=== PATIENT | female | born 1960 | race Caucasian/White ===

== ENCOUNTER 2020-12-23 06:53 | Day surgery (SDC) | payer MEDICARE, MEDICAID, SELFPAY ==
[2020-12-20 13:45] VITALS: BMI 26.0
[2020-12-23 07:32] VITALS: BP 145/55; PULSE 66; RESP 16; TEMP 36.2; O2SAT 98; BMI 25.7
[2020-12-23] MEDS: Lactated Ringers 1,000 ML 50 ML IV (07:36)
--- NOTE | 2020-12-23 07:39 | P.CONAN_ITS ---
[facility] Past Medical History Medical History Elevated cholesterol Fibromyalgia GERD (gastroesophageal reflux disease) History of fractured vertebra History of palpitations Hx of cervical cancer Hx of scarlet fever Migraine headache Schatzki's ring Scoliosis Surgical History Surgical History History of back surgery History of carpal tunnel surgery of right wrist History of esophagogastroduodenoscopy (EGD) History of tubal ligation Hx of colonoscopy Social History Social History Advance Directives: No Advance Directives Information Provided: No Advance Directives on File: No Meds Allergies Allergy/AdvReac Type Severity Reaction Status Date / Time acetic acid [VINEGAR] Allergy Severe ANGIOEDEMA Verified 12/23/20 07:36 codeine [CODEINE] AdvReac Intermediate N/V Verified 12/23/20 07:36 iodine [IODINE] AdvReac Intermediate NAUSEA Verified 12/23/20 07:36 Active Medications: Current Medications Generic Name Dose Route Start Last Admin Trade Name Freq PRN Reason Stop Dose Admin Lactated Ringer's 1,000 mls @ 50 mls/hr 12/22/20 08:15 12/23/20 07:36 Lr IV 50 mls/hr .Q20H FARZANA Administration Home Medications Medication Instructions Recorded Confirmed Last Taken Type acetaminophen 1 tab PO Q6H PRN 12/20/20 12/20/20 Unknown History atorvastatin 1 tab PO DAILY 12/20/20 12/20/20 Unknown History azelastine 2 spray INTRANASAL BID 12/20/20 12/20/20 Unknown History kczumfpjtw-qqcikylxlmugy-jrbu 1 tab PO Q6H PRN 12/20/20 12/20/20 Unknown History carisoprodol 1 tab PO TID PRN 12/20/20 12/20/20 Unknown History cetirizine 1 tab PO DAILY 12/20/20 12/20/20 Unknown History escitalopram oxalate 1 tab PO DAILY 12/20/20 12/20/20 Unknown History famotidine 1 tab PO BID 12/20/20 12/20/20 Unknown History fluticasone propionate 1 spray INTRANASAL DAILY 12/20/20 12/20/20 Unknown History metformin tab PO 12/20/20 Unknown History mometasone 1 appl TOPICAL BID PRN 12/20/20 12/20/20 Unknown History oxybutynin chloride 1 tab PO DAILY 12/20/20 12/20/20 Unknown History Exam Exam Date and Time: December 23, 2020 0739 Height,Weight and Vital Signs: Height 5 ft 3 in Weight 65.771 kg Last Vital Signs Temp 97.1 F 12/23/20 07:32 Pulse 66 12/23/20 07:32 Resp 16 12/23/20 07:32 BP 145/55 H 12/23/20 07:32 Pulse Ox 98 12/23/20 07:32 Airway Mallampati Class: II (Edentulous upper, 2 teeth lower) TM Dist: >3cm Neck ROM: Full Loose/Missing/Broken Teeth: Yes, Upper and Lower Heart: RRR Lungs: CTA Assessment and Plan Assessment Anesthesia Assessment: Anesthesia Plan Discussed and Chart Reviewed Final Anesthetic Review NPO: Yes ASA Class: III Final Preanesthetic Review: Meds/Allgs Chart Reviewed, Consent Obtained/Reviewed and Anes Risks/Benef Reviewed Patient Risk: Intermediate Procedure Risk: Low Anesthetic Plan Anesthetic Plan: MAC: Disposition: Standard PACU
[2020-12-23 07:40] LABS: Glucose, Whole Blood 323 mg/dL (60-115)
--- NOTE | 2020-12-23 08:16 | MHC.SHP ---
Pre-Procedural Eval Section A The patient is an INPATIENT: No Changes since office visit: No Cold of Flu in the past 2 weeks, No New Medical Problems, No Changes in Medication and No Patient answered all questions The History & Physical has been completed within 30 days and I have reviewed it.: Yes Section B Chief Complaint: screenng Allergies: Allergies Allergy/AdvReac Type Severity Reaction Status Date / Time acetic acid [VINEGAR] Allergy Severe ANGIOEDEMA Verified 12/23/20 07:36 codeine [CODEINE] AdvReac Intermediate N/V Verified 12/23/20 07:36 iodine [IODINE] AdvReac Intermediate NAUSEA Verified 12/23/20 07:36 Plan I have reviewed the history and physical and performed a pertinent physical examination on my patient. No changes have occurred unless specified.
--- NOTE | 2020-12-23 08:48 | PM.OP ---
Brief Operative Note Date of Service: 12/23/20 Pre-op diagnosis: screening Post-op diagnosis: same Surgeon: Michael Yee Anesthesia: GETA and MAC Estimated blood loss (mL): 0 Pathology: none sent Condition: stable Disposition: PACU
[2020-12-23 08:52] VITALS: BP 121/63; PULSE 64; RESP 16; TEMP 36.2; O2SAT 100
[2020-12-23 09:07] VITALS: BP 126/60; PULSE 58; RESP 18; O2SAT 98
--- NOTE | 2020-12-23 13:35 | OP_ITS ---
SURGEON: Michael Yee MD INDICATIONS: Colon cancer screening. PREOPERATIVE DIAGNOSIS: POSTOPERATIVE DIAGNOSIS: PROCEDURE PERFORMED: Colonoscopy to the cecum. ESTIMATED BLOOD LOSS: COMPLICATIONS: ANESTHESIA: ASSISTANTS: SPECIMENS: MEDICATIONS: Monitored anesthesia care. DESCRIPTION OF PROCEDURE: History and physical performed. The risks and benefits of the procedure were explained to the patient. Informed consent was obtained. The patient was placed in left lateral decubitus position. A digital rectal exam was performed and was found to be normal. The Olympus pediatric video colonoscope was introduced into the rectum and advanced to the cecum without difficulty. The cecum was identified by transillumination, palpation, and identification of ileocecal valve. Examination was performed and the scope was removed. She tolerated the procedure well and was taken to recovery area in stable condition. FINDINGS: The terminal ileum was not examined. The visualized colonic mucosa was normal. There was some retained stool, which limited the sensitivity examination for detection of small polyps to a mild degree. This was washed and suctioned. No polyps were identified. No diverticulosis was noted. Retroflexed examination showed small internal hemorrhoids. IMPRESSION: Negative screening colonoscopy. RECOMMENDATIONS: 1. Follow up as needed. 2. Repeat colonoscopy is recommended in 10 years for average risk individuals. MD LELAND Dominguez/KATY / [id number]
[2021-01-03 09:45] LABS: Glucose, Whole Blood 291 mg/dL (60-115)
== END 2020-12-23 09:50 | disposition home or self-care (01) ==
PROVIDERS: PCP Internal Medicine; Visit Provider Internal Medicine Gastroenterology
PROC: 0DJD8ZZ Inspection of Lower Intestinal Tract, Via Natural or Artificial Opening Endoscopic (ICD-10-PCS; CPT 45378; principal; 2020-12-23 08:00)
DX: Z12.11 Encounter for screening for malignant neoplasm of colon (principal); K64.8 Other hemorrhoids; K21.9 Gastro-esophageal reflux disease without esophagitis; E11.9 Type 2 diabetes mellitus without complications; J30.2 Other seasonal allergic rhinitis; Z79.51 Long term (current) use of inhaled steroids; Z79.84 Long term (current) use of oral hypoglycemic drugs; Z79.899 Other long term (current) drug therapy; Z88.8 Allergy status to other drugs, medicaments and biological substances; Z85.41 Personal history of malignant neoplasm of cervix uteri; Z87.891 Personal history of nicotine dependence
CPT/HCPCS: G0121; 82947

== ENCOUNTER 2021-01-09 08:21 | Outpatient (REF) | payer MEDICARE, MEDICAID, SELFPAY ==
[2021-01-09 09:10] LABS: MANUAL DIFF FLAG NO
[2021-01-09 09:15] LABS: Basophils Absolute Auto 0.1 X10*3/uL (0.0-0.2); Eosinophils Absolute Auto 0.4 X10*3/uL (0.0-0.4); Eosinophils Percent Auto 4.7 % (0-4); Hemoglobin 12.8 g/dl (12.0-16.0); Imm Gran Abs Auto 0.03 X10*3/uL (0.00-0.03); Imm Gran Pct Auto 0.3 % (0.0-0.4); Lymphocytes Absolute Auto 2.5 X10*3/uL (1.2-4.9); Lymphocytes Percent Auto 28.1 % (20-40); Mean Corpuscular HGB Conc 34.6 g/dl (31.0-35.0); Mean Corpuscular Hemoglobin 33.4 pg (27.0-33.0); Mean Corpuscular Volume 96.6 fL (80-98); Mean Platelet Volume 9.8 fL (9.4-12.3); Monocytes Absolute Auto 0.7 X10*3/uL (0.1-1.2); Monocytes Percent Auto 7.3 % (2-11); Neutrophils Absolute Auto 5.2 X10*3/uL (2.0-8.3); Neutrophils Percent Auto 58.6 % (45-73); Platelet Count 376 X10*3/uL (160-400); Red Blood Count 3.83 X10*6/uL (4.20-5.50); Red Cell Distribution Width 12.5 % (11.0-16.0); White Blood Count 8.9 X10*3/uL (4.8-10.8)
[2021-01-09 09:38] LABS: Alanine Aminotransferase 121 U/L (0-31); Albumin Level 4.6 g/dL (3.5-5.0); Alkaline Phosphatase 139 U/L (39-117); Aspartate Amino Transferase 80 U/L (5-31); Bilirubin Direct 0.3 mg/dL (0.0-0.5); Bilirubin Total 0.8 mg/dL (0.0-1.0); Blood Urea Nitrogen 5 mg/dL (9-16); Estimated Glomerular Filt Rate > 60; Lipase 32 U/L (8-78); Total Protein 7.3 g/dL (6.5-8.0)
== END 2021-01-09 08:22 | disposition home or self-care (01) ==
LOC: HO.LAB 08:21
PROVIDERS: PCP Internal Medicine; Visit Provider Internal Medicine Gastroenterology
DX: R10.11 Right upper quadrant pain (principal)
CPT/HCPCS: 36415; 80076; 82565; 83690; 84520; 85025

== ENCOUNTER 2021-01-23 08:46 | Outpatient (REF) | payer MEDICARE, MEDICAID, SELFPAY ==
--- NOTE | ~2021-01-23 | US_ITS ---
EXAMINATION: US ABDOMEN COMPLETE CLINICAL INFORMATION: Right upper quadrant pain. COMPARISON: None TECHNIQUE: Real-time imaging of the abdominal viscera. FINDINGS: PANCREAS: The head and body the pancreas are normal. The tail is not well visualized due to bowel gas. ABDOMINAL AORTA: Not well visualized. INFERIOR VENA CAVA: Visualized portions are normal. LIVER: Liver echotexture is increased. Is a hypoechoic area adjacent to the gallbladder, characteristic location of focal fatty sparing. The liver is normal in size. The liver contour is normal. No focal hepatic lesion. There is no intrahepatic biliary duct dilatation seen. GALLBLADDER: Normal. The gallbladder is physiologically distended without evidence of stones, sludge, polyps, wall thickening or pericholecystic fluid. COMMON BILE DUCT: Normal in caliber measuring 0.43 cm in diameter. RIGHT KIDNEY: There is a 5 mm echogenic density in the midpole with twinkle artifact questionable for small cortical calcification versus stone. No hydronephrosis or focal parenchymal lesions. The kidney measures 10.4 cm in maximum dimension. LEFT KIDNEY: There is a 5 mm echogenic density in the upper pole of the left kidney with twinkle artifact questionable for small stone. No hydronephrosis or focal parenchymal lesions. The kidney measures 10.3 cm in maximum dimension. SPLEEN: Normal. The spleen measures 9.3 cm in maximum dimension. FREE FLUID: None. US/US abdomen complete IMPRESSION: Echogenic liver suggestive of fatty infiltration. Question small bilateral renal stones. Limited visualization of the tail the pancreas and aorta.
== END 2021-01-23 08:47 | disposition home or self-care (01) ==
LOC: HO.US 08:46
PROVIDERS: Visit Provider Internal Medicine Gastroenterology
DX: R10.11 Right upper quadrant pain (principal)
CPT/HCPCS: 76700

== ENCOUNTER 2022-03-08 09:21 | Emergency (ER) | payer OTHER, MEDICAID, SELFPAY ==
--- NOTE | ~2022-03-08 | XR_ITS ---
EXAMINATION: THORACIC SPINE, LUMBAR SPINE CLINICAL INFORMATION: Back pain COMPARISON: None TECHNIQUE: 3 views thoracic spine, 3 views lumbar spine FINDINGS: Thoracic spine: There is minimal biconvex scoliosis present. Vertebral body heights and disc spaces are well maintained. Paraspinal soft tissues appear unremarkable. No bony destructive lesions are seen. Lumbar spine: Disc spaces are well preserved with the exception of some mild narrowing at L1-L2 with there is a Schmorl's node on the superior endplate of the L2 vertebral body. No bony destructive lesions are seen. No spondylolisthesis is present. XR/XR lumbar spine 2-3V IMPRESSION: Some mild degenerative changes noted lumbar spine with some narrowing at the L1-L2 disc space with Schmorl's node superior endplate of L2 as described above.
--- NOTE | ~2022-03-08 | XR_ITS ---
EXAMINATION: THORACIC SPINE, LUMBAR SPINE CLINICAL INFORMATION: Back pain COMPARISON: None TECHNIQUE: 3 views thoracic spine, 3 views lumbar spine FINDINGS: Thoracic spine: There is minimal biconvex scoliosis present. Vertebral body heights and disc spaces are well maintained. Paraspinal soft tissues appear unremarkable. No bony destructive lesions are seen. Lumbar spine: Disc spaces are well preserved with the exception of some mild narrowing at L1-L2 with there is a Schmorl's node on the superior endplate of the L2 vertebral body. No bony destructive lesions are seen. No spondylolisthesis is present. XR/XR thoracic spine 2V IMPRESSION: Some mild degenerative changes noted lumbar spine with some narrowing at the L1-L2 disc space with Schmorl's node superior endplate of L2 as described above.
[2022-03-08 09:29] VITALS: BP 126/63; PULSE 75; RESP 16; TEMP 36.1; O2SAT 97; BMI 23.8
--- NOTE | 2022-03-08 09:36 | ED_ITS ---
HPI - Back Pain/Injury General Chief Complaint: Back Pain/Injury Stated Complaint: back thrown out Time Seen by Provider: 03/08/22 09:36 Source: patient, RN notes reviewed and old records reviewed Mode of arrival: ambulatory Limitations: no limitations History of Present Illness HPI Narrative: This is a 62-year-old female with a past medical history of diabetes type 2, migraines, insomnia, and chronic back pain, who presents to the emergency department with complaints of acute on chronic back pain for 1 week. Patient denies any recent trauma, injury, or falls. She had a back fracture 11 years ago however, she is unsure what she broke or on what level. She reports that she initially felt a headache while she was walking 1 week ago which then resolved, and since then she has had diffuse back pain which she reports radiates down her anterior posterior legs. She reports that she has taken Soma 350 mg 3 times a day which has not helped her symptoms. She has been seen by her chiropractor who is requesting x-rays of her back today. She denies any urinary or bowel incontinence. She denies any saddle paresthesias. She states that she has not had a bowel movement in 4 days, she reports that she has a history of constipation and takes OTC bowel regimen for this. She denies any fevers, chills, dysuria, urinary frequency, urinary urgency, nausea, vomiting, diarrhea, chest pain, palpitations. She denies any other complaints or concerns at this time. MD elicited complaint: back pain Pertinent past history: prior back pain Onset (ago): week(s) (1) Timing: constant Severity: mild Pain scale (0-10): 3 Similar Symptoms Previously: Yes Quality: dull and aching Location: lumbar spine and thoracic spine Exacerbating factors: movement Relieving factors: none Associated symptoms: denies other symptoms Treatments prior to arrival: other medications (Soma) Work related injury: No Related Data Home Medications Medication Instructions Recorded Confirmed acetaminophen 500 mg tablet 1 tab PO Q6H PRN pain 12/20/20 12/20/20 atorvastatin 20 mg tablet 1 tab PO DAILY 12/20/20 12/20/20 azelastine 137 mcg (0.1 %) nasal 2 spray intranasal BID 12/20/20 12/20/20 spray aerosol dwvxesfebd-pzqhojnbnkegy-ggxxfdzw 1 tab PO Q6H PRN pain 12/20/20 12/20/20 50 mg-325 mg-40 mg tablet carisoprodol 350 mg tablet 1 tab PO TID PRN Muscle Pain 12/20/20 12/20/20 cetirizine 10 mg tablet 1 tab PO DAILY 12/20/20 12/20/20 escitalopram oxalate 20 mg tablet 1 tab PO DAILY 12/20/20 12/20/20 famotidine 40 mg tablet 1 tab PO BID 12/20/20 12/20/20 fluticasone propionate 50 1 spray intranasal DAILY 12/20/20 12/20/20 mcg/actuation nasal spray,suspension metformin 500 mg tablet tab PO 12/20/20 mometasone 0.1 % topical cream 1 appl topical BID PRN Itching 12/20/20 12/20/20 oxybutynin chloride 5 mg 1 tab PO DAILY 12/20/20 12/20/20 tablet,extended release 24 hr Allergies Allergy/AdvReac Type Severity Reaction Status Date / Time acetic acid [VINEGAR] Allergy Severe ANGIOEDEMA Verified 12/23/20 07:36 codeine [CODEINE] AdvReac Intermediate N/V Verified 12/23/20 07:36 iodine [IODINE] AdvReac Intermediate NAUSEA Verified 12/23/20 07:36 Review of Systems Constitutional: Constitutional: Reports no additional constitutional complaints, Denies chills, Denies fever(s) and Denies night sweats Eyes: Eyes: Reports no additional eye complaints, Denies blurry vision, Denies change in vision, Denies diplopia, Denies eye discharge, Denies loss of vision and Denies eye pain ENT: Denies dizziness Cardiovascular: Cardiovascular: Reports no additional cardiovascular complaints, Denies chest pain, Denies lightheadedness, Denies Loss of Consciousness and Denies dyspnea Respiratory: Respiratory: Reports no additional respiratory complaints and Denies dyspnea Gastrointestinal: Gastrointestinal: Reports no additional gastrointestinal complaints, Denies abdominal pain, Denies melena, Denies hematochezia, Denies change in bowel habits and Denies change in stool character Genitourinary: Genitourinary: Denies hematuria, Denies urinary frequency, Denies dysuria, Denies urinary incontinence, Denies urinary hesitancy and Denies urinary urgency Musculoskeletal: Musculoskeletal: Reports back pain, Denies numbness and Denies tingling Neurologic: Denies dizziness, Denies loss of vision, Denies numbness and Denies tingling Psychiatric: Psychiatric: Reports no additional psychiatric complaints Endocrine: Endocrine: Reports no additional endocrine complaints Hematologic/Lymphatic: Hematologic/Lymphatic: Reports no additional hematologic/lymphatic complaints Allergic/Immunologic: Allergic/Immunologic: Reports no additional allergic/immunologic complaints [facility] Past Medical History Attestation statement: The following information was validated with the patient. Source: old records reviewed Medical History Elevated cholesterol Fibromyalgia GERD (gastroesophageal reflux disease) History of fractured vertebra History of palpitations Hx of cervical cancer Hx of scarlet fever Migraine headache Schatzki's ring Scoliosis Surgical History History of back surgery History of carpal tunnel surgery of right wrist History of esophagogastroduodenoscopy (EGD) History of tubal ligation Hx of colonoscopy Social History Social History Advance Directives: Yes Advance Directives Information Provided: Yes Advance Directives on File: No Physical Exam Vital Signs: Vital Signs: Last Vital Signs Temp 97 F 03/08/22 09:29 Pulse 75 03/08/22 09:29 Resp 16 03/08/22 09:29 BP 126/63 03/08/22 09:29 Pulse Ox 97 03/08/22 09:29 O2 Del Method 03/08/22 09:29 BMI result Body Mass Index 23.8 Const: General: cooperative, no acute distress, alert and awake Nutritional Appearance: well nourished Orientation/consciousness: patient oriented x3 Limitations: no limitations HEENT: Head: Yes normal to inspection and Yes atraumatic Ears: hearing grossly normal bilaterally and external ears normal General nose exam: Normal external nose present, no nasal discharge noted and no epistaxis Face and sinus: Yes normal facial exam, No abrasion and No laceration Mouth: Normal oral and palatal mucosa present, no drooling and no muffled voice Eyes: General: appearance normal, both eyes and all related structures Periorbital: periorbital findings normal Eyelids: Yes eyelids normal Conjunctivae: conjunctivae normal Pupils: Equal, round and reactive pupils present EOM: EOMs intact bilaterally Neck: Neck: Yes normal visual inspection, Yes full ROM, Yes no lymphadenopathy and Yes supple Chest: Chest palpation & inspection: normal inspection of the chest Resp: Effort & Inspection: normal respiratory effort and able to speak in complete sentences Auscultation: clear to auscultation bilaterally Cardio: Rate: regular rate Rhythm: regular rhythm Heart sounds: S1 normal heart sound present and S2 normal heart sound present GI: Other: Abdomen is soft, nontender, no rebound or guarding. Active bowel sounds noted. Inspection: Yes normal to inspection : General: Yes no CVA tenderness Back/Spine/Pelvis: Other: Tenderness to palpation overlying the thoracic and lumbar paraspinous muscles bilaterally. mild tenderness overlying the left sciatic notch. No midline spine tenderness. Negative straight leg raise test bilaterally. DTR are 2+ bilaterally Back: no CVA tenderness Cervical Spine: normal cervical lordosis and cervical ROM normal Thoracic/Lumbar Spine: thoracic and lumbar spine normal to inspection and thoraco-lumbar ROM normal Pelvis: no pain with anterior-posterior compression Skin: General skin exam: no rashes or lesions noted Lesions: no lesions Rashes: no rashes Trauma: no lacerations or abrasions Neuro: General: patient oriented x3 and moves all extremities Cranial nerves: Yes Equal, round and reactive pupils present Cognition (Neuro): normal cognition Motor exam (neuro): 5/5 motor strength present throughout Sensory Exam: Normal double simultaneous stimulation for sensation Coordination: jqaktr-iq-fmus test normal Extrem: General: Yes normal to inspection, Yes full ROM and Yes capillary refill normal Psych: Appearance: grossly normal Mental Status: mental status grossly normal Affect: normal affect Attitude: cooperative Thought process: Normal thought process present Thought content: Normal thought content present Insight: Good insight present (Psych) Course Course Course Narrative: 10:00 This is a 62-year-old female with a past medical history of diabetes type 2, migraines, insomnia, and chronic back pain, who presents to the emergency department with complaints of acute on chronic back pain for 1 week. No saddle paraesthesia, urinary or bowel incontinence. Plan: Patient was seen and evaluated. Lumbar and thoracic spine x-rays ordered. Patient medicated with Toradol 15mg IM. MDM - Back Pain/Injury MDM Narrative Medical decision making narrative: Patient is a 62 year old female presenting to the emergency department today with acute on chronic back pain. Patient's physical exam was unremarkable. Patient's lumbar and thoracic x-rays showed some mild degenerative changes and some narrowing at the L1-L2 disc space with Schmorl's node present at the superior endplate of L2. I explained my physical exam findings as well as all test results to the patient. I answered all questions asked by the patient. Patient received IM Toradol which she stated helped her symptoms significantly. I stressed the importance of the patient taking her medication as prescribed. I stressed the importance of the patient following up with [his/her/their] primary care provider. I stressed the importance of the patient returning to the emergency department immediately if her symptoms were to worsen or if she were to develop any dizziness, shortness of breath, difficulty breathing, chest pain, blurry vision, loss of vision, nausea, vomiting, abdominal pain, fever, chills, back pain, or any other complaints. Patient verbalized agreement and understanding with this treatment plan and discharge. Differential Diagnosis Differential diagnosis: Likely strain of lumbar region Medical Records Attestation: I reviewed the patient's medical records. Imaging Data Lumbar and Thoracic X-ray: Attestation: I personally reviewed and interpreted this imaging study as follows: My impression: No acute process. Radiologist's impression: EXAMINATION: THORACIC SPINE, LUMBAR SPINE CLINICAL INFORMATION: Back pain? COMPARISON: None? TECHNIQUE: 3 views thoracic spine, 3 views lumbar spine? FINDINGS: Thoracic spine: There is minimal biconvex scoliosis present. Vertebral body heights and disc spaces are well maintained. Paraspinal soft tissues appear unremarkable. No bony destructive lesions are seen. Lumbar spine: Disc spaces are well preserved with the exception of some mild narrowing at L1-L2 with there is a Schmorl's node on the superior endplate of the L2 vertebral body. No bony destructive lesions are seen. No spondylolisthesis is present.? XR/XR thoracic spine 2V IMPRESSION: Some mild degenerative changes noted lumbar spine with some narrowing at the L1-L2 disc space with Schmorl's node superior endplate of L2 as described above.? Dictated By: Adrian Najera MD Signed By: <Electronically signed by Adrian Najera MD in OV> Discharge Plan Discharge Clinical Impression: Strain of lumbar region Patient Disposition: Home, Self-Care Instructions: Low Back Strain (ED), Lower Back Exercises (ED) Additional Instructions: Findings we talked about at your visit: mild narrowing at L1-L2 with there is a Schmorl's node on the superior endplate of the L2 vertebral body, suspicious for a herniated disc. Follow up with your primary care provider, an business continuity specialist, and a pain specialist. Return to the emergency department immediately if your symptoms worsen or if you develop any dizziness, shortness of breath, difficulty breathing, chest pain, blurry vision, loss of vision, nausea, vomiting, abdominal pain, fever, chills, back pain, or any other complaints. Prescriptions: No Action carisoprodol 350 mg tablet 1 tab PO TID PRN (Reason: Muscle Pain) metformin 500 mg tablet PO atorvastatin 20 mg tablet 1 tab PO DAILY cetirizine 10 mg tablet 1 tab PO DAILY famotidine 40 mg tablet 1 tab PO BID acetaminophen 500 mg tablet 1 tab PO Q6H PRN (Reason: pain) kzhvgaaxis-himplakzxpfpo-bqdp 50-325-40 mg tablet 1 tab PO Q6H PRN (Reason: pain) oxybutynin chloride 5 mg tablet extended release 24hr 1 tab PO DAILY azelastine 137 mcg (0.1 %) aerosol,spray 2 spray intranasal BID fluticasone propionate 50 mcg/actuation spray,suspension 1 spray intranasal DAILY mometasone 0.1 % cream 1 appl topical BID PRN (Reason: Itching) escitalopram oxalate 20 mg tablet 1 tab PO DAILY Referrals: [facility] Orthopedic Surgeons [Provider Group] (Call to establish and follow up with an orthopedic provider. ) [facility] Pain Management [Provider Group] (Call to establish and follow up with a manufacturing engineer paint. ) Nakul Omer MD [Primary Care Provider] - (Follow up with your primary care provider. ) Interventions: ED Discharge Assessment Last Done: 03/08/22 11:56 Discharge Date/Time: 03/08/22 11:57 Print Language: Uzbek
--- NOTE | 2022-03-08 10:37 | PC.NURSE ---
pt to imaging at this time
[2022-03-08] MEDS: Ketorolac Tromethamine 15 MG/ML VIAL IM (10:44)
--- NOTE | 2022-03-08 11:45 | PC.NURSE ---
Pt stated that pain medication did not work. PA student and PA aware. Pt provided with box of tissue per request. Pt able to ambulate to RN station with steady gait using cane
== END 2022-03-08 11:57 | disposition home or self-care (01) ==
PROVIDERS: Emergency Provider Emergency Medicine; PCP Internal Medicine
DX: M54.50 Low back pain, unspecified (principal); M54.6 Pain in thoracic spine; E11.9 Type 2 diabetes mellitus without complications; Z79.899 Other long term (current) drug therapy
CPT/HCPCS: 72070; 72100; 96372; 99283; J1885

== ENCOUNTER 2022-07-24 10:48 | Day surgery (SDC) | payer OTHER, MEDICAID, SELFPAY ==
--- NOTE | 2022-07-23 13:48 | HO.ANESPROP2 ---
Documented by User: Julieth Andrews NP 07/23/22 13:50 HPI - Anesthesia Eval Consult details Narrative: 62yo M for Upper Endoscopy with Balloon Dilitation PMFSH Past Medical History Medical History Diabetes Elevated cholesterol Fibromyalgia GERD (gastroesophageal reflux disease) History of fractured vertebra History of palpitations Hx of cervical cancer Hx of scarlet fever Migraine headache Schatzki's ring Scoliosis Surgical History Surgical History History of back surgery History of carpal tunnel surgery of right wrist History of esophagogastroduodenoscopy (EGD) History of tubal ligation Hx of colonoscopy Hx of elbow surgery Social History Social History Patient Tobacco Use Status: Current everyday Tobacco user Tobacco use type: Cigarette Cigarette Packs Per Day: 1 Cigarettes Per Day: 20.0 Use of substances other than those prescribed or required for medical reasons: Yes Substance Use Type Other:: occasional Are you DNR?: No Advance Directives: No Advance Directives Information Provided: Yes Meds Allergies Allergy/AdvReac Type Severity Reaction Status Date / Time acetic acid [VINEGAR] Allergy Severe ANGIOEDEMA Verified 12/23/20 07:36 iodine [IODINE] AdvReac Intermediate NAUSEA Verified 12/23/20 07:36 Home Medications Medication Instructions Recorded Confirmed Last Taken Type acetaminophen 500 mg tablet 1 tab PO Q6H PRN pain 12/20/20 12/20/20 Unknown History atorvastatin 20 mg tablet 1 tab PO DAILY 12/20/20 12/20/20 Unknown History azelastine 137 mcg (0.1 %) nasal 2 spray intranasal BID 12/20/20 12/20/20 Unknown History spray aerosol srdxbsfocl-ywnsnubutkvdv-hrtifdkw 1 tab PO Q6H PRN pain 12/20/20 12/20/20 Unknown History 50 mg-325 mg-40 mg tablet carisoprodol 350 mg tablet 1 tab PO TID PRN Muscle Pain 12/20/20 12/20/20 Unknown History cetirizine 10 mg tablet 1 tab PO DAILY 12/20/20 12/20/20 Unknown History escitalopram oxalate 20 mg tablet 1 tab PO DAILY 12/20/20 12/20/20 Unknown History famotidine 40 mg tablet 1 tab PO BID 12/20/20 12/20/20 Unknown History fluticasone propionate 50 1 spray intranasal DAILY 12/20/20 12/20/20 Unknown History mcg/actuation nasal spray,suspension mometasone 0.1 % topical cream 1 appl topical BID PRN Itching 12/20/20 12/20/20 Unknown History metformin 500 mg tablet 1 tab PO BID 07/24/22 07/24/22 Unknown History metformin 500 mg tablet 1 tab PO BID 07/24/22 07/24/22 Unknown History Exam Exam Date and Time: July 23, 2022 1348 Documented by User: Quirino Adler MD 07/24/22 12:41 PMF Past Medical History Medical History Diabetes Elevated cholesterol Fibromyalgia GERD (gastroesophageal reflux disease) History of fractured vertebra History of palpitations Hx of cervical cancer Hx of scarlet fever Migraine headache Schatzki's ring Scoliosis Family History Family history of problems with anesthesia: No Surgical History Surgical History History of back surgery History of carpal tunnel surgery of right wrist History of esophagogastroduodenoscopy (EGD) History of tubal ligation Hx of colonoscopy Hx of elbow surgery History of Problems with Anesthesia: No Social History Social History Patient Tobacco Use Status: Current everyday Tobacco user Tobacco use type: Cigarette Cigarette Packs Per Day: 1 Cigarettes Per Day: 20.0 Use of substances other than those prescribed or required for medical reasons: Yes Substance Use Type Other:: occasional Are you DNR?: No Advance Directives: No Advance Directives Information Provided: Yes Meds Allergies Allergy/AdvReac Type Severity Reaction Status Date / Time acetic acid [VINEGAR] Allergy Severe ANGIOEDEMA Verified 12/23/20 07:36 iodine [IODINE] AdvReac Intermediate NAUSEA Verified 12/23/20 07:36 Home Medications Medication Instructions Recorded Confirmed Last Taken Type acetaminophen 500 mg tablet 1 tab PO Q6H PRN pain 12/20/20 12/20/20 Unknown History atorvastatin 20 mg tablet 1 tab PO DAILY 12/20/20 12/20/20 Unknown History azelastine 137 mcg (0.1 %) nasal 2 spray intranasal BID 12/20/20 12/20/20 Unknown History spray aerosol ekmanapypi-ernglbcmmcuwl-wkymooom 1 tab PO Q6H PRN pain 12/20/20 12/20/20 Unknown History 50 mg-325 mg-40 mg tablet carisoprodol 350 mg tablet 1 tab PO TID PRN Muscle Pain 12/20/20 12/20/20 Unknown History cetirizine 10 mg tablet 1 tab PO DAILY 12/20/20 12/20/20 Unknown History escitalopram oxalate 20 mg tablet 1 tab PO DAILY 12/20/20 12/20/20 Unknown History famotidine 40 mg tablet 1 tab PO BID 12/20/20 12/20/20 Unknown History fluticasone propionate 50 1 spray intranasal DAILY 12/20/20 12/20/20 Unknown History mcg/actuation nasal spray,suspension mometasone 0.1 % topical cream 1 appl topical BID PRN Itching 12/20/20 12/20/20 Unknown History metformin 500 mg tablet 1 tab PO BID 07/24/22 07/24/22 Unknown History metformin 500 mg tablet 1 tab PO BID 07/24/22 07/24/22 Unknown History Exam Airway Mallampati Class: II TM Dist: >3cm Neck ROM: Full Loose/Missing/Broken Teeth: Yes (no upper teeth only 2 lower teeth not loose) Heart: [id number] Lungs: cta b/l Assessment and Plan Assessment Anesthesia Assessment: Anesthesia Plan Discussed and Chart Reviewed Final Anesthetic Review Family History of Problems with Anesthesia: No History of Problems with Anesthesia: No NPO: Yes ASA Class: III Final Preanesthetic Review: No Changes in Pt Med Stat, Meds/Allgs Chart Reviewed, Consent Obtained/Reviewed and Anes Risks/Benef Reviewed Patient Risk: Intermediate Procedure Risk: Intermediate Assessment/Block/Sedation in SS: Assess/Block/Sedation-SS Anesthetic Plan Anesthetic Plan: MAC: and Agree w/ Assess. and Plan Disposition: Standard PACU
[2022-07-24 11:34] VITALS: BMI 23.3
[2022-07-24 11:52] VITALS: BP 135/60; PULSE 57; RESP 18; TEMP 36.6; O2SAT 97
[2022-07-24] MEDS: Lactated Ringers 1,000 ML 100 ML IVCONT (11:54)
[2022-07-24 12:15] LABS: Glucose, Whole Blood 113 mg/dL (60-115)
--- NOTE | 2022-07-24 12:29 | MHC.SHP ---
Pre-Procedural Eval Section A Date of Service: 07/24/22 Section B Chief Complaint: Esophageal obstruction Details of Present Illness: see H&P and addendum, no changes Relevant Family History (Specify if Yes): No Relevant Social History: None Present Medications: see Short Stay Collaborative assessment Medical History: No relevant PMH Allergies: Allergies Allergy/AdvReac Type Severity Reaction Status Date / Time acetic acid [VINEGAR] Allergy Severe ANGIOEDEMA Verified 12/23/20 07:36 iodine [IODINE] AdvReac Intermediate NAUSEA Verified 12/23/20 07:36 Review of Systems Sugical H&P ROS: Negative: Constitution, Cardiovascular, Respiratory, Neurological, Psychiatric, Hem-Onc, Allergic/Immunologic, Gastrointestinal, Genitourinary, Musculoskeletal, Integumentary, Endocrine and Eyes/Ears/Nose/Throat Exam Surgical H&P Exam: Normal: HEENT, Normal: Heart, Normal: Lungs, Normal: Extremities, Normal: Abdomen, Normal: Skin and Normal: Neurological Plan Diagnosis/Plan: Unchanged I have reviewed the history and physical and performed a pertinent physical examination on my patient. No changes have occurred unless specified.
--- NOTE | 2022-07-24 13:05 | PM.OP ---
Brief Operative Note Date of Service: 07/24/22 Pre-op diagnosis: schatzki ring dysphagia Post-op diagnosis: same Surgeon: Michael Yee Anesthesia: MAC Was an Manager Cancer used for this Procedure?: No Estimated blood loss (mL): 5 Pathology: other Condition: stable Disposition: PACU
[2022-07-24 13:10] VITALS: BP 127/44; PULSE 86; RESP 12; TEMP 37.2; O2SAT 94
[2022-07-24] MEDS: Acetaminophen 325 MG TABLET 650 MG PO (13:24)
[2022-07-24 13:25] VITALS: BP 127/65; PULSE 76; RESP 16; TEMP 37.2; O2SAT 96
--- NOTE | 2022-07-24 23:22 | OP_ITS ---
SURGEON: Michael Yee MD INDICATIONS: Dysphagia and history of Schatzki ring. PREOPERATIVE DIAGNOSIS: POSTOPERATIVE DIAGNOSIS: PROCEDURE PERFORMED: Upper endoscopy with balloon dilation and biopsy. ESTIMATED BLOOD LOSS: COMPLICATIONS: ANESTHESIA: Monitored anesthesia care. ASSISTANTS: SPECIMENS: DESCRIPTION OF PROCEDURE: The procedure was performed on 07/24/2022. History and physical was performed. The risks and benefits of the procedure were explained to the patient and informed consent was obtained. The patient was placed in the left lateral decubitus position. The Olympus video gastroscope was introduced into the esophagus, stomach, and duodenum. Examination was performed. The scope was removed. She tolerated the procedure well and was returned to recovery room in stable condition. FINDINGS: Esophagus: There was a narrowing right at the EG junction consistent with the patient's previously identified Schatzki ring. The scope passed through this. There was a small sliding hiatal hernia. Stomach: Stomach showed antral gastritis. Duodenum: There was duodenitis involving the bulb. Balloon dilation at 16.5 and 18 mm was performed for 60 seconds through the scope balloon at the narrowed area. This was widely patent at the termination of the procedure. Next, biopsies were obtained from the antrum, the EG junction, and 30 cm in the esophagus. IMPRESSION: 1. Schatzki ring. 2. Gastritis/duodenitis. RECOMMENDATION: Follow up the biopsy results. MD LELAND Dominguez/KATY / [id number]
== END 2022-07-24 14:40 | disposition home or self-care (01) ==
PROVIDERS: PCP Internal Medicine; Visit Provider Internal Medicine Gastroenterology
PROC: (CPT 43249; principal; 2022-07-24 12:10)
DX: K22.2 Esophageal obstruction (principal); K21.9 Gastro-esophageal reflux disease without esophagitis; K29.70 Gastritis, unspecified, without bleeding; K29.80 Duodenitis without bleeding; K44.9 Diaphragmatic hernia without obstruction or gangrene; E11.9 Type 2 diabetes mellitus without complications; Z79.84 Long term (current) use of oral hypoglycemic drugs; Z79.899 Other long term (current) drug therapy
CPT/HCPCS: 43249; 43239; 82947; 88305; 88342; C1726; J2250

== ENCOUNTER 2023-10-26 07:52 | Day surgery (SDC) | payer MEDICARE, MEDICAID, SELFPAY ==
[2023-10-26 07:57] VITALS: PULSE 89; RESP 18; TEMP 36.8; O2SAT 97; BMI 21.8
[2023-10-26 08:13] VITALS: BP 132/48; PULSE 92; RESP 18; TEMP 36.7; O2SAT 98
--- NOTE | 2023-10-26 08:19 | PC.NURSE ---
pt is alert and oriented, breathing even and unlabored, skin WNL. pt reports being unable to swallow for 4 days, pt reports she has a condition called Schatzkis rings and this happens to her periodically (last time being 2 years ago). pt has surgical procedures every couple of years to open esophagus. pt reports pain in throat radiating to epigastric area, unable to eat, drink or swallow. pt able to speak with no difficulties, denies any SOB. pt reports recent illness in August with frequent vomiting that she believes made this worse.
--- NOTE | 2023-10-26 09:06 | ED.GENADULT ---
HPI - General Adult General Chief complaint: General Medical Stated complaint: unable to swallow Time Seen by Provider: 10/26/23 09:05 Source: patient Mode of arrival: ambulatory Limitations: no limitations History of Present Illness HPI narrative: This is a 63-year-old female history of Schatzki rings requiring dilation, diabetes, hypertension, fibromyalgia presenting to the emergency department with difficulty swallowing since August but acutely worsening X 4 days, she tells me that this is typically how she presents when her esophagus narrowing and she typically requires a procedure at this point. Is having a difficult time tolerating p.o. both fluids and solids. Patient would also like to be screened for UTI due to slight burning on urination. Patient does add she has not been able to eat or drink for the past 4 days. And has not been able to take any of her meds because she is unable to swallow. Denies fevers, chills, chest pain, shortness of breath, nausea, vomiting, abdominal pain, headache, vision changes, dizziness, weakness, flank pain, changes in bowel habits, hematuria Related Data Home Medications Medication Instructions Recorded Confirmed acetaminophen 500 mg tablet 1 tab PO Q6H PRN pain 12/20/20 12/20/20 atorvastatin 20 mg tablet 1 tab PO DAILY 12/20/20 12/20/20 azelastine 137 mcg (0.1 %) nasal 2 spray intranasal BID 12/20/20 12/20/20 spray aerosol wusltnzdkc-jzeibufycnzup-jdilphdh 1 tab PO Q6H PRN pain 12/20/20 12/20/20 50 mg-325 mg-40 mg tablet carisoprodol 350 mg tablet 1 tab PO TID PRN Muscle Pain 12/20/20 12/20/20 cetirizine 10 mg tablet 1 tab PO DAILY 12/20/20 12/20/20 escitalopram oxalate 20 mg tablet 1 tab PO DAILY 12/20/20 12/20/20 famotidine 40 mg tablet 1 tab PO BID 12/20/20 12/20/20 fluticasone propionate 50 1 spray intranasal DAILY 12/20/20 12/20/20 mcg/actuation nasal spray,suspension mometasone 0.1 % topical cream 1 appl topical BID PRN Itching 12/20/20 12/20/20 metformin 500 mg tablet 1 tab PO BID 11/22/22 11/22/22 metformin 500 mg tablet 1 tab PO BID 07/24/22 07/24/22 Allergies Allergy/AdvReac Type Severity Reaction Status Date / Time acetic acid [VINEGAR] Allergy Severe ANGIOEDEMA Verified 10/26/23 07:57 iodine [IODINE] AdvReac Intermediate NAUSEA Verified 10/26/23 07:57 Review of Systems Review of Systems: Yes all other systems are reviewed and are negative PMFSH Past Medical History Attestation statement: The following information was validated with the patient. Source: old records reviewed and nursing notes reviewed Medical History Diabetes Elevated cholesterol Fibromyalgia GERD (gastroesophageal reflux disease) History of fractured vertebra History of palpitations Hx of cervical cancer Hx of scarlet fever Migraine headache Schatzki's ring Scoliosis Surgical History History of back surgery History of carpal tunnel surgery of right wrist History of esophagogastroduodenoscopy (EGD) History of tubal ligation Hx of colonoscopy Hx of elbow surgery Social History Social History Comment: medicated in PACU Patient Tobacco Use Status: Current everyday Tobacco user Tobacco use type: Cigarette Cigarette Packs Per Day: 1 Cigarettes Per Day: 20.0 Smoked in Last 30 Days: Yes Use of substances other than those prescribed or required for medical reasons: Yes Substance Use Type: Marijuana Advance Directives: No Physical Exam ED Vital Signs: Vital Signs - 24 hr 10/26/23 07:57 10/26/23 08:13 Temperature 98.2 F 98.1 F Pulse Rate 89 92 Respiratory Rate 18 18 Blood Pressure 132/48 L Pulse Oximetry 97 98 Oxygen Delivery Method Room Air Room Air BMI result Body Mass Index 21.8 vss Appearance: Alert.? Oriented X3.? No acute distress.?Spiting in a cup Head: Normocephalic, atraumatic, no step-offs or deformities Eyes: Pupils equal, round and reactive to light.? ENT: Pharynx normal.? Speaking in full sentences controlling secretions well with intermittent dry cough to clear throat. Neck: Normal inspection.? Neck supple.? CVS: Normal heart rate and rhythm.? Pulses normal.? Respiratory: No respiratory distress.? Breath sounds normal.? Abdomen: Soft and nontender.? Skin: Skin warm and dry.? Normal skin color.? Normal skin turgor.? Extremities: No lower extremity edema.? No calf ttp. 5/5 strength to bilateral upper and lower extremities Neuro: Oriented X 3.? No motor deficit.? No sensory deficit. CN 2-12 intact Course Reevaluation(s) Reevaluation #1: Discussed this case with Dr. Kaiser who request for patient to be admitted in he will follow them. Labs still pending Time: 09:21 Reevaluation #2: CBC unremarkable. Chemistry no acute findings requiring intervention. UA with infection. Ceftin ordered. Plan hospital admission Time: 10:26 Medical Decision Making Medical Decision Making [facility] Narrative: 63-year-old female presents with difficulty swallowing for the past 4 days. History of Schatzki ring. Requesting to be tested for UTI due to burning on urination. Physical examination significant for Pharynx normal.? Speaking in full sentences controlling secretions well with intermittent dry cough to clear throat. This is likely recurrence of Schatzki ring that may require esophageal dilation. Unlikely acute threat to airway. No signs of respiratory distress. Will rule out UTI. Other differentials include cystitis. Unlikely pyelonephritis, acute abdomen, metabolic derangements. Plan medical clearance will reach out to GI Differential Diagnosis Differential Diagnoses: The differential diagnosis associated with the presentation includes This is likely recurrence of Schatzki ring that may require esophageal dilation. Unlikely acute threat to airway. No signs of respiratory distress. Will rule out UTI. Other differentials include cystitis. Unlikely pyelonephritis, acute abdomen, metabolic derangements. Admission/Observation Consideration of admission/observation: Escalation of care including admission/observation considered Consult Healthcare Provider Management of the patient was discussed with: [employer] Lab Data [facility] Lab Attestation statement: I reviewed the patient's lab results. 10/26/23 09:26 10/26/23 09:26 Labs: Lab Results 10/26/23 Range/Units 09:26 WBC 10.2 (4.8-10.8) X10*3/uL RBC 3.89 L (4.20-5.50) X10*6/uL Hgb 12.8 (12.0-16.0) g/dl Hct 36.7 L (37.0-47.0) % MCV 94.3 (80.0-98.0) fL MCH 32.9 (27.0-33.0) pg MCHC 34.9 (31.0-35.0) g/dl RDW 13.3 (11.0-16.0) % Plt Count 367 (160-400) X10*3/uL MPV 9.8 (9.4-12.3) fL Immature Gran % (Auto) 0.3 (0.0-0.4) % Neut % (Auto) 66.1 (45-73) % Lymph % (Auto) 24.8 (20-40) % [place] % (Auto) 6.6 (2-11) % Eos % (Auto) 1.5 (0-4) % Baso % (Auto) 0.7 (0-2) % Lymph # (Auto) 2.5 (1.2-4.9) X10*3/uL [place] # (Auto) 0.7 (0.1-1.2) X10*3/uL Eos # (Auto) 0.2 (0.0-0.4) X10*3/uL Baso # (Auto) 0.1 (0.0-0.2) X10*3/uL Abs Immat Gran (auto) 0.03 (0.00-0.03) X10*3/uL Absolute Neuts (auto) 6.8 (2.0-8.3) x10*3/uL Absolute Nucleated RBC 0.000 (0.0-0.012) X10*3/uL Nucleated RBC % (auto) 0.0 (0.0-0.2) /100WBC PT 13.2 (11.1-13.3) SEC INR 1.1 (0.9-1.1) Sodium 142 (135-145) mmol/L Potassium 4.1 (3.3-5.1) mmol/L Chloride 104 (96-108) mmol/L Carbon Dioxide 26 (22-29) mmol/L Anion Gap 16 (12-20) BUN 8 L (9-16) mg/dL Creatinine 0.86 (0.5-1.4) mg/dL Estim Creat Clear Calc 53.6 Estimated GFR > 60 Random Glucose 118 H (60-115) mg/dL Calcium 10.3 H (8.4-10.2) mg/dL Total Bilirubin 0.6 (0.0-1.0) mg/dL AST 21 (5-31) U/L ALT 16 (0-31) U/L Alkaline Phosphatase 109 (39-117) U/L Total Protein 8.4 H (6.5-8.0) g/dL Albumin 4.8 (3.5-5.0) g/dL Urine Color Dark Yellow Urine Appearance Turbid Urine pH 6.0 (5.0-9.0) Ur Specific [place] 1.020 (1.005-1.025) Urine Protein 30 (1+) H (Neg-Trace) mg/dL Urine Glucose (UA) Negative (Negative) mg/dL Urine Ketones Negative (Negative) mg/dL Urine Blood Moderate (2+) H (Negative) Urine Nitrite Positive H (Negative) Ur Leukocyte Esterase Large (3+) H (Negative) Urine RBC 6-10 H (0-2) /HPF Urine WBC >50 H (0-5) /HPF Ur Squamous Epith Cells 3-5 (0-2) /HPF Urine Bacteria 4+ (None Seen) Hyaline Casts 3-5 (0-2) /LPF Critical Care Time Critical Care Time Critical Care Time: Yes Total Critical Care Time: 35 Attestation: I attest to this time spent taking care of the patient, obtaining history, physical, reviewing labs, imaging, speaking to my attending, speaking to specialist. Discharge Plan Discharge Clinical Impression: Dysphagia, Schatzki's ring, UTI (urinary tract infection) Patient Disposition: Admitted As Inpatient
[2023-10-26 09:30] LABS: MANUAL DIFF FLAG NO
[2023-10-26 09:39] LABS: Appearance Urine Turbid; Basophils Absolute Auto 0.1 X10*3/uL (0.0-0.2); Basophils Percent Auto 0.7 % (0-2); Color Urine Dark Yellow; Eosinophils Absolute Auto 0.2 X10*3/uL (0.0-0.4); Eosinophils Percent Auto 1.5 % (0-4); Glucose Urine UA Negative (Negative); Hematocrit 36.7 % (37.0-47.0); Hemoglobin 12.8 g/dl (12.0-16.0); Imm Gran Abs Auto 0.03 X10*3/uL (0.00-0.03); Imm Gran Pct Auto 0.3 % (0.0-0.4); Leukocyte Esterase Urine Large (3+) (Negative); Lymphocytes Absolute Auto 2.5 X10*3/uL (1.2-4.9); Lymphocytes Percent Auto 24.8 % (20-40); Mean Corpuscular HGB Conc 34.9 g/dl (31.0-35.0); Mean Corpuscular Hemoglobin 32.9 pg (27.0-33.0); Mean Corpuscular Volume 94.3 fL (80.0-98.0); Mean Platelet Volume 9.8 fL (9.4-12.3); Monocytes Absolute Auto 0.7 X10*3/uL (0.1-1.2); Monocytes Percent Auto 6.6 % (2-11); Neutrophils Absolute Auto 6.8 x10*3/uL (2.0-8.3); Neutrophils Percent Auto 66.1 % (45-73); Nitrite Urine Positive (Negative); Platelet Count 367 X10*3/uL (160-400); Red Blood Count 3.89 X10*6/uL (4.20-5.50); Red Cell Distribution Width 13.3 % (11.0-16.0); UMIC TRIGGER UACC YES; Urine Blood Moderate (2+) (Negative); Urine Ketones Negative (Negative); Urine Protein 30 (1+) mg/dL (Neg-Trace); White Blood Count 10.2 X10*3/uL (4.8-10.8)
[2023-10-26 09:40] LABS: INTERNATIONAL NORM RATIO 1.1 (0.9-1.1); Prothrombin Time 13.2 SEC (11.1-13.3)
[2023-10-26 09:44] LABS: Bacteria Urine 4+ (None Seen); UACC Culture Trigger YES; WBC Urine >50 /HPF (0-5)
[2023-10-26 09:47] LABS: Alanine Aminotransferase 16 U/L (0-31); Albumin Level 4.8 g/dL (3.5-5.0); Alkaline Phosphatase 109 U/L (39-117); Anion Gap 16 (12-20); Aspartate Amino Transferase 21 U/L (5-31); Bilirubin Total 0.6 mg/dL (0.0-1.0); Blood Urea Nitrogen 8 mg/dL (9-16); Calcium 10.3 mg/dL (8.4-10.2); Carbon Dioxide 26 mmol/L (22-29); Chloride 104 mmol/L (96-108); Creatinine Clr Calc Pharmacy 53.6; Estimated Glomerular Filt Rate > 60; Glucose Random 118 mg/dL (60-115); Potassium 4.1 mmol/L (3.3-5.1); Sodium 142 mmol/L (135-145); Total Protein 8.4 g/dL (6.5-8.0)
[2023-10-26] MEDS: glucagon HCL 1 MG VIAL IVPUSH (10:24)
--- NOTE | 2023-10-26 10:30 | PC.NURSE ---
pt continues to having difficulty swallowing, pt medicated per MAR. report given to short stay RN.
--- NOTE | 2023-10-26 10:30 | PC.NURSE ---
PO meds held at this time due to continued difficulty swallow, provider aware and knows plan to hold off until pt can swallow.
--- NOTE | 2023-10-26 10:47 | P.CNGI_ITS ---
History of Present Illness Data of Consult Service Date: 10/26/23 Requesting physician: Maylin Melgoza Primary Care Provider: Nakul Omer MD HPI Reason for consult: dysphagia 63-year-old female w/ history of diabetes, hypertension, fibromyalgia and asthma who I am seeing for assessment of dysphagia and odynophagia Patient has a hx of prior dilations for dysphagia attributed to schatzki ring with last EGD 2 yrs ago. She felt her swallowing was regressing 2-3 months ago, initially to solids, but then to liquids and the last 4 d she has been unable to swallow any foods or liquids and has been spitting out mucous. She also noted pain and abnormal sensation in the neck area. she is on steroid nasal spray, not taking PPI but on famotidine Denies fevers, chills, chest pain, shortness of breath, nausea, vomiting, abdominal pain, headache, vision changes, dizziness, weakness, flank pain, changes in bowel habits, hematuria She also noted dysuria and had some mild flank pain few days ago which has resolved. Review of Systems 2 Review of Systems: Constitutional : No Weight loss, No Fever, No Chills ENT/Mouth : No sore throat, No Rhinorrhea Eyes: No Swelling, No Redness Cardiovascular : No Chest Pain, No SOB, No Edema Respiratory : No Cough, No Sputum, No Wheezing Gastrointestinal : see HPI Genitourinary : NO Dysuria, No Urinary Frequency, No Hematuria, No Urgency Musculoskeletal : No joint pain, No Myalgias, No Joint Swelling Skin : No Skin Lesions, No rash Neuro : No Weakness, No Numbness, No Dizziness, No Headache Psych : No Anxiety/Panic, No Depression Heme/Lymph: No Bruising, No Lymphadenopathy Endocrine : No Polyuria, No Polydipsia All other systems reviewed and are negative. [facility] Past Medical History Medical History Diabetes Migraine headache Fibromyalgia Hx of cervical cancer Schatzki's ring GERD (gastroesophageal reflux disease) History of fractured vertebra Scoliosis Elevated cholesterol History of palpitations Hx of scarlet fever Family History Pertinent family history: no fh of CRC, esophageal disease Surgical History Surgical History Hx of elbow surgery History of back surgery Hx of colonoscopy History of carpal tunnel surgery of right wrist History of tubal ligation History of esophagogastroduodenoscopy (EGD) Social History Social History Comment: medicated in PACU Patient Tobacco Use Status: Current everyday Tobacco user Tobacco use type: Cigarette Cigarette Packs Per Day: 1 Cigarettes Per Day: 20.0 Smoked in Last 30 Days: Yes Use of substances other than those prescribed or required for medical reasons: Yes Substance Use Type: Marijuana Advance Directives: No Meds Allergies Allergy/AdvReac Type Severity Reaction Status Date / Time acetic acid [VINEGAR] Allergy Severe ANGIOEDEMA Verified 10/26/23 07:57 iodine [IODINE] AdvReac Intermediate NAUSEA Verified 10/26/23 07:57 Active Medications: Current Medications Cefuroxime Axetil (Cefuroxime Axetil 250 Mg Tablet) 250 mg PO BID [facility] Home Medications Medication Instructions Recorded Confirmed Last Taken Type acetaminophen 500 mg tablet 1 tab PO Q6H PRN pain 12/20/20 12/20/20 Unknown History atorvastatin 20 mg tablet 1 tab PO DAILY 12/20/20 12/20/20 Unknown History azelastine 137 mcg (0.1 %) nasal 2 spray intranasal BID 12/20/20 12/20/20 Unknown History spray aerosol cpxlwvisnb-shpjszjjyhgqm-eahwjyqj 1 tab PO Q6H PRN pain 12/20/20 12/20/20 Unknown History 50 mg-325 mg-40 mg tablet carisoprodol 350 mg tablet 1 tab PO TID PRN Muscle Pain 12/20/20 12/20/20 Unknown History cetirizine 10 mg tablet 1 tab PO DAILY 12/20/20 12/20/20 Unknown History escitalopram oxalate 20 mg tablet 1 tab PO DAILY 12/20/20 12/20/20 Unknown History famotidine 40 mg tablet 1 tab PO BID 12/20/20 12/20/20 Unknown History fluticasone propionate 50 1 spray intranasal DAILY 12/20/20 12/20/20 Unknown History mcg/actuation nasal spray,suspension mometasone 0.1 % topical cream 1 appl topical BID PRN Itching 12/20/20 12/20/20 Unknown History metformin 500 mg tablet 1 tab PO BID 07/24/22 07/24/22 Unknown History metformin 500 mg tablet 1 tab PO BID 07/24/22 07/24/22 Unknown History Physical Exam 2 Vital Signs: Vital Signs: Last Vital Signs Temp 98.1 F 10/26/23 08:13 Pulse 92 10/26/23 08:13 Resp 18 10/26/23 08:13 BP 132/48 L 10/26/23 08:13 Pulse Ox 98 10/26/23 08:13 O2 Del Method Room Air 10/26/23 08:13 BMI result Body Mass Index 21.8 EXAM: GENERAL: The patient is well developed and nontoxic. VITAL SIGNS:see workflow HEENT: Nonicteric sclerae, PERRLA, EOMI. Oropharynx clear. Moist mucous membranes. Conjunctivae appear well perfused. No thyroid mass. CHEST: Chest wall is nontender. HEART: Regular rate and rhythm without murmurs. LUNGS: Clear to auscultation bilaterally. ABDOMEN: Soft, positive bowel sounds, nontender, no organomegaly.no flank tenderness SKIN: No rash, no excessive bruising, petechiae, or purpura. NEUROLOGIC: Cranial nerves II-XII intact without motor/sensory deficit. Psych: Appearance: grossly normal Results Labs 10/26/23 09:26 10/26/23 09:26 Labs: Short CBC 10/26/23 Range/Units 09:26 WBC 10.2 (4.8-10.8) X10*3/uL Hgb 12.8 (12.0-16.0) g/dl Hct 36.7 L (37.0-47.0) % Plt Count 367 (160-400) X10*3/uL BMP 10/26/23 09:26 Sodium 142 Potassium 4.1 Chloride 104 Carbon Dioxide 26 BUN 8 L Creatinine 0.86 Calcium 10.3 H Liver Function 10/26/23 Range/Units 09:26 Total Bilirubin 0.6 (0.0-1.0) mg/dL AST 21 (5-31) U/L ALT 16 (0-31) U/L Alkaline Phosphatase 109 (39-117) U/L Albumin 4.8 (3.5-5.0) g/dL Urine 10/26/23 Range/Units 09:26 Urine Color Dark Yellow Urine Appearance Turbid Urine pH 6.0 (5.0-9.0) Ur Specific [place] 1.020 (1.005-1.025) Urine Protein 30 (1+) H (Neg-Trace) mg/dL Urine Glucose (UA) Negative (Negative) mg/dL Assessment and Plan (1) Schatzki's ring: Status: Acute Plan 1/ Dysphagia and odynophagia, maybe due to worsening stricture from schatzki ring, only on famotidine 2/ UTI- being treated PLAN: 1/ EGD today for further assessment with possible dilation Procedures Date of Service Date of Service: 10/26/23
--- NOTE | 2023-10-26 10:56 | MHC.SHP ---
Pre-Procedural Eval Section A - 24 Hr Update-Section A only Date of Service: 10/26/23 The patient is an INPATIENT: Yes The patient has been examined within 24 hours of the surgical procedure. The History & Physical has been completed within 30 days and I have reviewed it.: Yes Section B - Complete if H&P > 30 days Chief Complaint: unable to swallow Allergies: Allergies Allergy/AdvReac Type Severity Reaction Status Date / Time acetic acid [VINEGAR] Allergy Severe ANGIOEDEMA Verified 10/26/23 07:57 iodine [IODINE] AdvReac Intermediate NAUSEA Verified 10/26/23 07:57 Plan Diagnosis/Plan: Unchanged I have reviewed the history and physical and performed a pertinent physical examination on my patient. No changes have occurred unless specified. Time Spent With Patient Time: Total time managing care of this patient today ____ minutes.
--- NOTE | 2023-10-26 11:18 | HO.ANESPROP2 ---
[facility] Active Problems Active Problems: All Active Problems (Updated 10/26/23 @ 10:03 by KURTIS Lawrence) UTI (urinary tract infection) (Acute) Schatzki's ring (Acute) Dysphagia (Acute) Past Medical History Medical History Diabetes Migraine headache Fibromyalgia Hx of cervical cancer Schatzki's ring GERD (gastroesophageal reflux disease) History of fractured vertebra Scoliosis Elevated cholesterol History of palpitations Hx of scarlet fever Family History Family history of problems with anesthesia: No Surgical History Surgical History Hx of elbow surgery History of back surgery Hx of colonoscopy History of carpal tunnel surgery of right wrist History of tubal ligation History of esophagogastroduodenoscopy (EGD) History of Problems with Anesthesia: No Social History Social History Comment: medicated in PACU Patient Tobacco Use Status: Current everyday Tobacco user Tobacco use type: Cigarette Cigarette Packs Per Day: 1 Cigarettes Per Day: 20.0 Smoked in Last 30 Days: Yes Use of substances other than those prescribed or required for medical reasons: Yes Substance Use Type: Marijuana Advance Directives: No Meds Allergies Allergy/AdvReac Type Severity Reaction Status Date / Time acetic acid [VINEGAR] Allergy Severe ANGIOEDEMA Verified 10/26/23 07:57 iodine [IODINE] AdvReac Intermediate NAUSEA Verified 10/26/23 07:57 Active Medications: Current Medications Cefuroxime Axetil (Cefuroxime Axetil 250 Mg Tablet) 250 mg PO BID [facility] Home Medications Medication Instructions Recorded Confirmed Last Taken Type atorvastatin 20 mg tablet 1 tab PO DAILY 12/20/20 12/20/20 Unknown History carisoprodol 350 mg tablet 1 tab PO TID PRN Muscle Pain 12/20/20 12/20/20 Unknown History escitalopram oxalate 20 mg tablet 1 tab PO DAILY 12/20/20 12/20/20 Unknown History famotidine 40 mg tablet 1 tab PO BID 12/20/20 12/20/20 Unknown History metformin 500 mg tablet 1 tab PO BID 07/24/22 07/24/22 Unknown History albuterol sulfate 90 mcg/actuation 2 puff inhalation Q6H PRN wheezing 10/26/23 Unknown History aerosol inhaler montelukast 10 mg tablet 10 mg PO DAILY 10/26/23 Unknown History sumatriptan succinate 50 mg tablet 50 mg PO Q2H PRN migraine 10/26/23 Unknown History Exam Height,Weight and Vital Signs: Height 5 ft 2 in Weight 54 kg Last Vital Signs Temp 98.1 F 10/26/23 08:13 Pulse 92 10/26/23 08:13 Resp 18 10/26/23 08:13 BP 132/48 L 10/26/23 08:13 Pulse Ox 98 10/26/23 08:13 O2 Del Method Room Air 10/26/23 08:13 Pertinent Lab Results Pertinent Lab Results: Laboratory Tests 10/26/23 09:26 WBC 10.2 RBC 3.89 L Hgb 12.8 Hct 36.7 L MCV 94.3 MCH 32.9 MCHC 34.9 RDW 13.3 Plt Count 367 MPV 9.8 Immature Gran % (Auto) 0.3 Neut % (Auto) 66.1 Lymph % (Auto) 24.8 Jones % (Auto) 6.6 Eos % (Auto) 1.5 Baso % (Auto) 0.7 Lymph # (Auto) 2.5 Jones # (Auto) 0.7 Eos # (Auto) 0.2 Baso # (Auto) 0.1 Abs Immat Gran (auto) 0.03 Absolute Neuts (auto) 6.8 Absolute Nucleated RBC 0.000 Nucleated RBC % (auto) 0.0 PT 13.2 INR 1.1 Sodium 142 Potassium 4.1 Chloride 104 Carbon Dioxide 26 Anion Gap 16 BUN 8 L Creatinine 0.86 Estim Creat Clear Calc 53.6 Estimated GFR > 60 Random Glucose 118 H Calcium 10.3 H Total Bilirubin 0.6 AST 21 ALT 16 Alkaline Phosphatase 109 Total Protein 8.4 H Albumin 4.8 Urine Color Dark Yellow Urine Appearance Turbid Urine pH 6.0 Ur Specific [place] 1.020 Urine Protein 30 (1+) H Urine Glucose (UA) Negative Urine Ketones Negative Urine Blood Moderate (2+) H Urine Nitrite Positive H Ur Leukocyte Esterase Large (3+) H Urine RBC 6-10 H Urine WBC >50 H Ur Squamous Epith Cells 3-5 Urine Bacteria 4+ Hyaline Casts 3-5 Airway Mallampati Class: II TM Dist: >3cm Neck ROM: Full Denture: Upper and Lower Heart: RRR Lungs: CTA Assessment and Plan Assessment Anesthesia Assessment: Anesthesia Plan Discussed Final Anesthetic Review Family History of Problems with Anesthesia: No History of Problems with Anesthesia: No NPO: Yes ASA Class: III and Emergency Final Preanesthetic Review: Meds/Allgs Chart Reviewed, Consent Obtained/Reviewed and Anes Risks/Benef Reviewed Patient Risk: Intermediate Procedure Risk: Low Anesthetic Plan Anesthetic Plan: GA Disposition: Standard PACU
--- NOTE | 2023-10-26 11:25 | W.PM.OPN ---
Operative Note Operative Note Date of Service: 10/26/23 Narrative: Procedure Description: EGD Indication: dysphagia Anesthesia: GA FLEXIBLE TRANSORAL UPPER GASTROINTESTINAL ENDOSCOPY UPPER ENDOSCOPY Consent: Indications for the procedure and potential complications of bleeding, perforation, reaction to medications and missed diagnosis were discussed with the patient and informed consent was obtained. Instrument: Olympus GIF H 190 J mid size upper endoscope Monitoring: Vital signs and clinical assessment, continuous EKG monitoring, Pulse oximetry, Carbon Dioxide monitoring and blood pressure monitoring were done throughout the procedure. Procedure: The patient was placed in the left lateral decubitis position and pre-procedure medications were administered and a bite block was placed. The endoscope was inserted into the mouth and advanced under direct vision to the third part of duodenum. A careful inspection was made as the upper endoscope was withdrawn including a retroflexed examination of the proximal stomach; Findings and interventions are described below. Findings: Larynx:normal Esophagus: GE junction at 38 cm, diaphragm hiatus at 38 cm, food bolus noted stuck at the GEJ, this was gently pushed down and then the GEJ was dilated to 12 mm with tear noted and some heme. Bx taken from distal and proximal esophagus. Inlet patch noted in proximal esophagus. Stomach: Patchy gastric erythema. Biopsies were obtained. Grade 2 flap valve on retroflexed examination of the cardia. Duodenum: bulbar duodenitis Intervention: Biopsies as noted above, balloon dilation Impression/Findings: duodenitis esophageal stricture, esophagitis inlet patch PLAN: change to PPI sucralfate for 1 week f/u with Dr Yee for further dilation in 3-4 weeks
[2023-10-26 11:40] VITALS: BP 140/54; PULSE 85; RESP 16; TEMP 36.9; O2SAT 97
--- NOTE | 2023-10-26 11:42 | HO.POSTANES ---
Post Anesthesia Evaluation Post Anesthesia Evaluation Date of Service: 10/26/23 Vital Signs: Vital Signs Temp Pulse Resp BP Pulse Ox O2 Del Method 10/26/23 11:40 98.5 F 85 16 140/54 H 97 Room Air 10/26/23 08:13 98.1 F 92 18 132/48 L 98 Room Air 10/26/23 07:57 98.2 F 89 18 97 Room Air Anesthesia: General Endotracheal-GETA Mental Status: Awake Pain Control: Satisfactory Nausea/Vomiting: None Hydration: Adequate Anesthesia-Related Issues: No Anes. Related Issues
--- NOTE | 2023-10-26 11:44 | PHA.MEDREC ---
Pharmacy Consult ? Medication Reconciliation Pharmacy has completed the medication reconciliation. Patient in surgery during time of med rec. Patient's spouse does not know medications. Called patient's pharmacy and confirmed meds through them and claim history.
--- NOTE | 2023-10-26 11:50 | PC.NURSE ---
OOB AMBULATED TO BATHROOM STEADY GAIT [id number]
[2023-10-26 11:55] VITALS: BP 152/61; PULSE 85; RESP 18; TEMP 36.6; O2SAT 99
[2023-10-26] MEDS: Mag&Al/Sim/Diphenhyd/Lidocaine 10 ML ORAL.SUSP PO (11:55)
== END 2023-10-26 12:02 | disposition home or self-care (01) ==
LOC: HO.ED 09:23 → HO.SSS 10:59
PROVIDERS: Physician Assistant; Emergency Provider Emergency Medicine; PCP Internal Medicine; Visit Provider Internal Medicine Gastroenterology
PROC: 0DJ08ZZ Inspection of Upper Intestinal Tract, Via Natural or Artificial Opening Endoscopic (ICD-10-PCS; CPT 43235; principal; 2023-10-26 11:00)
DX: K22.2 Esophageal obstruction (principal); K29.80 Duodenitis without bleeding; K20.80 Other esophagitis without bleeding; Q39.8 Other congenital malformations of esophagus; R13.10 Dysphagia, unspecified; N39.0 Urinary tract infection, site not specified; E11.9 Type 2 diabetes mellitus without complications; I10 Essential (primary) hypertension; E78.00 Pure hypercholesterolemia, unspecified; Z79.84 Long term (current) use of oral hypoglycemic drugs; F17.210 Nicotine dependence, cigarettes, uncomplicated
CPT/HCPCS: 43239; 43249; 36415; 80053; 81001; 85025; 85610; 87086; 87088; 87186; 88305; 88313; 88342; 96374; 99284; 99285; C1726; J1100; J1610; J2250; J2405; J2704

== ENCOUNTER → 2023-10-26 08:09 | Outpatient (BNV) | payer MEDICARE, MEDICAID, SELFPAY | PROVIDERS: Emergency Provider Emergency Medicine; PCP Internal Medicine; Visit Provider Internal Medicine Gastroenterology | DX: K22.2 Esophageal obstruction (principal); K22.6 Gastro-esophageal laceration-hemorrhage syndrome; R13.10 Dysphagia, unspecified | CPT/HCPCS: 43239; 43249; 99284 ==

== ENCOUNTER → 2023-11-15 08:44 | Outpatient (BNVA) | payer MEDICARE, MEDICAID, SELFPAY | PROVIDERS: PCP Internal Medicine; Visit Provider Internal Medicine Gastroenterology ==

== ENCOUNTER 2024-01-28 09:00 | Day surgery (SDC) | payer MEDICARE, MEDICAID, SELFPAY ==
--- NOTE | 2024-01-24 10:15 | HO.ANESPROP2 ---
HPI - Anesthesia Eval Consult details Narrative: 63yo F for Colonoscopy, Upper Endoscopy with Balloon Dilitation s/p EGD (food bolus) 10/2023 with GA-ETT 7 PMFSH Active Problems Active Problems: All Active Problems UTI (urinary tract infection) (Acute) Schatzki's ring (Acute) Dysphagia (Acute) Past Medical History Medical History Diabetes Migraine headache Fibromyalgia Hx of cervical cancer Schatzki's ring GERD (gastroesophageal reflux disease) History of fractured vertebra Scoliosis Elevated cholesterol History of palpitations Hx of scarlet fever Family History Family history of problems with anesthesia: No Surgical History Surgical History Hx of elbow surgery History of back surgery Hx of colonoscopy History of carpal tunnel surgery of right wrist History of tubal ligation History of esophagogastroduodenoscopy (EGD) History of Problems with Anesthesia: No Social History Social History Comment: medicated in PACU Patient Tobacco Use Status: Current everyday Tobacco user Tobacco use type: Cigarette Cigarette Packs Per Day: 1 Cigarettes Per Day: 20.0 Substance Use Type: Marijuana Are you DNR?: No Advance Directives: No Advance Directives Information Provided: Yes Patient : No Meds Allergies Allergy/AdvReac Type Severity Reaction Status Date / Time acetic acid [VINEGAR] Allergy Severe ANGIOEDEMA Verified 10/26/23 07:57 codeine Allergy Vomiting Verified 01/28/24 10:15 iodine [IODINE] AdvReac Intermediate NAUSEA Verified 10/26/23 07:57 Home Medications ?Medication ?Instructions ?Recorded ?Confirmed ?Last Taken ?Type atorvastatin 20 mg tablet 1 tab PO DAILY 12/20/20 10/26/23 Unknown History carisoprodol 350 mg tablet 1 tab PO TID PRN Muscle Pain 12/20/20 10/26/23 Unknown History escitalopram oxalate 20 mg tablet 1 tab PO DAILY 12/20/20 10/26/23 Unknown History famotidine 40 mg tablet 1 tab PO BID 12/20/20 10/26/23 Unknown History metformin 500 mg tablet 1 tab PO BID 07/24/22 10/26/23 Unknown History albuterol sulfate 90 mcg/actuation 2 puff inhalation Q6H PRN wheezing 10/26/23 10/26/23 Unknown History aerosol inhaler montelukast 10 mg tablet 10 mg PO BEDTIME 10/26/23 10/26/23 Unknown History sumatriptan succinate 50 mg tablet 50 mg PO Q2H PRN migraine 10/26/23 10/26/23 Unknown History Exam Pertinent Lab Results Pertinent Lab Results: Laboratory Tests 10/26/23 09:26 WBC 10.2 Hgb 12.8 Hct 36.7 L Plt Count 367 Sodium 142 Potassium 4.1 Chloride 104 Carbon Dioxide 26 BUN 8 L Creatinine 0.86 Assessment and Plan Assessment Anesthesia Assessment: Chart Reviewed Final Anesthetic Review Family History of Problems with Anesthesia: No History of Problems with Anesthesia: No
[2024-01-28 09:03] VITALS: BP 145/77; PULSE 89; RESP 18; TEMP 36.4; O2SAT 97; BMI 22.0
[2024-01-28 09:13] LABS: Glucose, Whole Blood 140 mg/dL (60-115)
[2024-01-28] MEDS: Lactated Ringers 1,000 ML 100 ML IVCONT (09:21)
--- NOTE | 2024-01-28 09:45 | P.CONAN_ITS ---
[facility] Active Problems Active Problems: All Active Problems UTI (urinary tract infection) (Acute) Schatzki's ring (Acute) Dysphagia (Acute) Past Medical History Medical History Diabetes Migraine headache Fibromyalgia Hx of cervical cancer Schatzki's ring GERD (gastroesophageal reflux disease) History of fractured vertebra Scoliosis Elevated cholesterol History of palpitations Hx of scarlet fever Family History Family history of problems with anesthesia: No Surgical History Surgical History Hx of elbow surgery History of back surgery Hx of colonoscopy History of carpal tunnel surgery of right wrist History of tubal ligation History of esophagogastroduodenoscopy (EGD) History of Problems with Anesthesia: No Social History Social History Comment: medicated in PACU Patient Tobacco Use Status: Current everyday Tobacco user Tobacco use type: Cigarette Cigarette Packs Per Day: 1 Cigarettes Per Day: 20.0 Substance Use Type: Marijuana Are you DNR?: No Advance Directives: No Advance Directives Information Provided: Yes Meds Allergies Allergy/AdvReac Type Severity Reaction Status Date / Time acetic acid [VINEGAR] Allergy Severe ANGIOEDEMA Verified 10/26/23 07:57 iodine [IODINE] AdvReac Intermediate NAUSEA Verified 10/26/23 07:57 Active Medications: Current Medications Lactated Ringer's (Lr) 1,000 mls @ 100 mls/hr IVCONT .Q10H FARZANA Last Admin: 01/28/24 09:21 Dose: 100 mls/hr Home Medications ?Medication ?Instructions ?Recorded ?Confirmed ?Last Taken ?Type atorvastatin 20 mg tablet 1 tab PO DAILY 12/20/20 10/26/23 Unknown History carisoprodol 350 mg tablet 1 tab PO TID PRN Muscle Pain 12/20/20 10/26/23 Unknown History escitalopram oxalate 20 mg tablet 1 tab PO DAILY 12/20/20 10/26/23 Unknown History famotidine 40 mg tablet 1 tab PO BID 12/20/20 10/26/23 Unknown History metformin 500 mg tablet 1 tab PO BID 07/24/22 10/26/23 Unknown History albuterol sulfate 90 mcg/actuation 2 puff inhalation Q6H PRN wheezing 10/26/23 10/26/23 Unknown History aerosol inhaler montelukast 10 mg tablet 10 mg PO BEDTIME 10/26/23 10/26/23 Unknown History sumatriptan succinate 50 mg tablet 50 mg PO Q2H PRN migraine 10/26/23 10/26/23 Unknown History Exam Height,Weight and Vital Signs: Height 5 ft 2 in Weight 54.567 kg Last Vital Signs Temp 97.6 F 01/28/24 09:03 Pulse 89 01/28/24 09:03 Resp 18 01/28/24 09:03 BP 145/77 H 01/28/24 09:03 Pulse Ox 97 01/28/24 09:03 O2 Del Method Room Air 01/28/24 09:03 Pertinent Lab Results Pertinent Lab Results: Laboratory Tests 01/28/24 09:09 POC Glucose 140 H Assessment and Plan Final Anesthetic Review Family History of Problems with Anesthesia: No History of Problems with Anesthesia: No
--- NOTE | 2024-01-28 10:12 | P.CONAN_ITS ---
[facility] Active Problems Active Problems: All Active Problems UTI (urinary tract infection) (Acute) Schatzki's ring (Acute) Dysphagia (Acute) Past Medical History Medical History Diabetes Migraine headache Fibromyalgia Hx of cervical cancer Schatzki's ring GERD (gastroesophageal reflux disease) History of fractured vertebra Scoliosis Elevated cholesterol History of palpitations Hx of scarlet fever Functional capacity: independent ambulation Patient : No Family History Family history of problems with anesthesia: No Surgical History Surgical History Hx of elbow surgery History of back surgery Hx of colonoscopy History of carpal tunnel surgery of right wrist History of tubal ligation History of esophagogastroduodenoscopy (EGD) History of Problems with Anesthesia: No Social History Social History Comment: medicated in PACU Patient Tobacco Use Status: Current everyday Tobacco user Tobacco use type: Cigarette Cigarette Packs Per Day: 1 Cigarettes Per Day: 20.0 Substance Use Type: Marijuana Are you DNR?: No Advance Directives: No Advance Directives Information Provided: Yes Meds Allergies Allergy/AdvReac Type Severity Reaction Status Date / Time acetic acid [VINEGAR] Allergy Severe ANGIOEDEMA Verified 10/26/23 07:57 iodine [IODINE] AdvReac Intermediate NAUSEA Verified 10/26/23 07:57 Active Medications: Current Medications Lactated Ringer's (Lr) 1,000 mls @ 100 mls/hr IVCONT .Q10H FARZANA Last Admin: 01/28/24 09:21 Dose: 100 mls/hr Home Medications ?Medication ?Instructions ?Recorded ?Confirmed ?Last Taken ?Type atorvastatin 20 mg tablet 1 tab PO DAILY 12/20/20 10/26/23 Unknown History carisoprodol 350 mg tablet 1 tab PO TID PRN Muscle Pain 12/20/20 10/26/23 Unknown History escitalopram oxalate 20 mg tablet 1 tab PO DAILY 12/20/20 10/26/23 Unknown History famotidine 40 mg tablet 1 tab PO BID 12/20/20 10/26/23 Unknown History metformin 500 mg tablet 1 tab PO BID 07/24/22 10/26/23 Unknown History albuterol sulfate 90 mcg/actuation 2 puff inhalation Q6H PRN wheezing 10/26/23 10/26/23 Unknown History aerosol inhaler montelukast 10 mg tablet 10 mg PO BEDTIME 10/26/23 10/26/23 Unknown History sumatriptan succinate 50 mg tablet 50 mg PO Q2H PRN migraine 10/26/23 10/26/23 Unknown History Exam Height,Weight and Vital Signs: Height 5 ft 2 in Weight 54.567 kg Last Vital Signs Temp 97.6 F 01/28/24 09:03 Pulse 89 01/28/24 09:03 Resp 18 01/28/24 09:03 BP 145/77 H 01/28/24 09:03 Pulse Ox 97 01/28/24 09:03 O2 Del Method Room Air 01/28/24 09:03 Pertinent Lab Results Pertinent Lab Results: Laboratory Tests 01/28/24 09:09 POC Glucose 140 H Airway Mallampati Class: III TM Dist: >3cm Neck ROM: Full Denture: Upper and Lower Heart: RRR Lungs: CTA Assessment and Plan Assessment Anesthesia Assessment: Anesthesia Plan Discussed and Smoking Cess. Discussed Final Anesthetic Review Family History of Problems with Anesthesia: No History of Problems with Anesthesia: No NPO: Yes ASA Class: III Final Preanesthetic Review: Meds/Allgs Chart Reviewed, Consent Obtained/Reviewed and Anes Risks/Benef Reviewed Patient Risk: Intermediate Procedure Risk: Low Anesthetic Plan Anesthetic Plan: MAC: Disposition: Standard PACU
--- NOTE | 2024-01-28 10:22 | MHC.SHP ---
Pre-Procedural Eval Section A - 24 Hr Update-Section A only Date of Service: 01/28/24 Section B - Complete if H&P > 30 days Chief Complaint: Esophageal obstruction,screening Details of Present Illness: see H&P no changes Relevant Family History (Specify if Yes): No Relevant Social History: None Present Medications: see Short Stay Collaborative assessment Medical History: No relevant PMH History of Previous Operations: No relevant previous surgery Allergies: Allergies Allergy/AdvReac Type Severity Reaction Status Date / Time acetic acid [VINEGAR] Allergy Severe ANGIOEDEMA Verified 10/26/23 07:57 codeine Allergy Vomiting Verified 01/28/24 10:15 iodine [IODINE] AdvReac Intermediate NAUSEA Verified 10/26/23 07:57 Review of Systems Sugical H&P ROS: Negative: Constitution, Cardiovascular, Respiratory, Neurological, Psychiatric, Hem-Onc, Allergic/Immunologic, Gastrointestinal, Genitourinary, Musculoskeletal, Integumentary, Endocrine and Eyes/Ears/Nose/Throat Exam Surgical H&P Exam: Normal: HEENT, Normal: Heart, Normal: Lungs, Normal: Extremities, Normal: Abdomen, Normal: Skin and Normal: Neurological Plan Diagnosis/Plan: Unchanged I have reviewed the history and physical and performed a pertinent physical examination on my patient. No changes have occurred unless specified. Time Spent With Patient Time: Total time managing care of this patient today ____ minutes.
[2024-01-28 11:26] VITALS: BP 127/58; PULSE 99; RESP 16; TEMP 36.4; O2SAT 97
[2024-01-28 11:41] VITALS: BP 112/67; PULSE 69; RESP 16; TEMP 36.6; O2SAT 97
--- NOTE | 2024-01-28 12:06 | OP_ITS ---
DATE OF SERVICE: 01/28/2024 SURGEON: Michael Yee MD INDICATIONS: 1. Esophageal stricture. 2. Colon cancer screening. PREOPERATIVE DIAGNOSIS: POSTOPERATIVE DIAGNOSIS: PROCEDURE PERFORMED: ESTIMATED BLOOD LOSS: COMPLICATIONS: ANESTHESIA: Monitored anesthesia care. ASSISTANTS: SPECIMENS: PROCEDURES PERFORMED: Upper endoscopy with balloon dilation and biopsy, colonoscopy to the terminal ileum with snare polypectomy and biopsy. DESCRIPTION OF PROCEDURE: A history and physical was performed. The risks and benefits of the procedure were explained to the patient and informed consent was obtained. The patient was placed in the left lateral decubitus position. The Olympus video gastroscope was introduced into the esophagus, stomach, and duodenum. Examination was performed and the scope was removed. She was repositioned for colonoscopy. A digital rectal exam was performed and was found to be normal. The Olympus pediatric video colonoscope was introduced into the rectum and advanced to the cecum. The cecum was identified by transillumination, palpation, and identification of ileocecal valve. Examination was performed and the scope was removed. She tolerated the procedure well and was returned to recovery area in stable condition. FINDINGS: Upper endoscopy, esophagus: There was a stricture at 28 cm from the incisors. This was crossed easily with the upper endoscope. There was an irregular EG junction. Balloon dilation of the stricture was performed at 18 mm with superficial mucosal laceration indicating good results from the balloon dilation. Biopsies were obtained from the EG junction. Stomach: The stomach showed no evidence of masses or ulcers. There was antral erythema consistent with gastritis. Biopsies were obtained from the antrum. Duodenum: The bulb and 2nd portion were normal. Colonoscopy: The terminal ileum was briefly examined and appeared normal. The visualized colonic mucosa was normal. There were 2 polyps in the right colon. The largest measuring approximately 6 mm, 1 was removed with a snare, 1 was removed with the biopsy forceps. There was a final polyp located at 50 cm, which was removed with a snare. No other polyps were identified. There was moderate diverticulosis. Retroflexed examination showed internal hemorrhoids. IMPRESSION: 1. Esophageal stricture. 2. Gastritis. 3. Colon polyps. RECOMMENDATION: Follow up the biopsy results. MD LELAND Dominguez/KATY / [id number]
--- NOTE | 2024-01-28 16:25 | HO.POSTANES ---
Post Anesthesia Evaluation Post Anesthesia Evaluation Date of Service: 01/28/24 Vital Signs: Vital Signs Temp Pulse Resp BP Pulse Ox O2 Del Method 01/28/24 11:41 98 F 69 16 112/67 97 Room Air 01/28/24 11:26 97.5 F 99 16 127/58 L 97 Room Air 01/28/24 09:03 97.6 F 89 18 145/77 H 97 Room Air Anesthesia: Monitored Mental Status: Awake Pain Control: Satisfactory Nausea/Vomiting: None Hydration: Adequate Anesthesia-Related Issues: No Anes. Related Issues
== END 2024-01-28 12:14 | disposition home or self-care (01) ==
PROVIDERS: PCP Internal Medicine; Visit Provider Internal Medicine Gastroenterology
PROC: 0DJD8ZZ Inspection of Lower Intestinal Tract, Via Natural or Artificial Opening Endoscopic (ICD-10-PCS; CPT 45378; principal; 2024-01-28 12:00)
DX: Z12.11 Encounter for screening for malignant neoplasm of colon (principal); D12.2 Benign neoplasm of ascending colon; D12.6 Benign neoplasm of colon, unspecified; K57.30 Diverticulosis of large intestine without perforation or abscess without bleeding; K64.8 Other hemorrhoids; K22.2 Esophageal obstruction; K22.70 Barrett's esophagus without dysplasia; K20.80 Other esophagitis without bleeding; K29.70 Gastritis, unspecified, without bleeding; E11.9 Type 2 diabetes mellitus without complications; Z79.899 Other long term (current) drug therapy; Z88.5 Allergy status to narcotic agent
CPT/HCPCS: 45385; 45380; 43249; 43239; 82947; 88305; 88313; 88342; C1726; J2704